=== PATIENT | male | born 2000 | race African-American/Black ===

== ENCOUNTER 2024-06-20 15:02 | Observation (INO) ==
--- NOTE | 2024-06-20 15:31 | Emergency Department Note ---
Impression & Plan Chest pain, Near syncope, Brugada syndrome ED Provider Note HISTORY OF PRESENT ILLNESS: Patient is a 23-year-old male presenting with chest pain and near syncope. Patient presents from [facility] with chest pain. He states he was seated in a chair when he developed chest pain and shortness of breath and got very sweaty and felt like he was going to pass out. He had an EKG performed at the nursing home that reportedly showed ST elevations and he was referred to the emergency department. Patient denies any history of cardiac pathology. He states that he keeps feeling like he is going to pass out in which his vision gets blurry and he feels lightheaded. He states that he feels like he was kicked in the chest. Locates the pain to the substernal chest with radiation to the left shoulder. He denies any recreational drug use. Denies any abdominal pain, nausea or vomiting. ROS: as above PHYSICAL EXAM: Constitutional: Patient appears in no acute distress. HENT: Head: Normocephalic and atraumatic. Eyes: EOMI, PERRL Mouth/Throat: Mucous membranes moist. Neck: Trachea midline. Neck supple. Cardiovascular: RRR, No murmurs, rubs or gallops. Intact distal pulses. Pulmonary/Chest: No respiratory distress. Breath sounds clear and equal bilaterally. No wheezes or rales. Abdominal: Abdomen soft, no tenderness, rebound or guarding. Musculoskeletal: No edema, tenderness or deformity noted. Skin: Warm and dry. No rash, erythema, pallor or cyanosis Psychiatric: Appropriate mood and affect for situation. Neurological: Alert and keenly responsive. CN II-XII grossly intact, moving all extremities equally and fully. MDM: - Vitals signs showed bradycardia - History obtained via patient. History as above. - Chronic conditions affecting care: None - Differential diagnoses include, but are not limited to: Acute coronary syndrome; pulmonary embolism; dissection; tension pneumothorax; esophageal rupture; pneumonia - Order placed for continuous cardiac monitoring. At this time, monitor showed rate of 57 bpm with normal sinus rhythm, per my interpretation. - External medical records reviewed. - EKG image interpreted by myself showed normal sinus rhythm. Rate bradycardic at 58 bpm. QT 412. Patient is noted to have Brugada syndrome. No previous EKG to compare to. - Laboratory workup interpreted by myself showed normal WBC; normal PT/INR; stable electrolytes; normal lipase; normal troponin - CXR image reviewed by myself was negative for pneumonia, per my interpretation. - UA negative for infection. UDS negative - Discussed case with EP manufacturing engineering technologist division order technician, Dr. Gupta, at 16:10. He recommended an echocardiogram and rhythm monitoring. Did discuss that the patient is having any symptoms of feeling like he is going to pass out but he is not having any ventricular fibrillation on telemetry. Echocardiogram was ordered, but Dr. Gupta states that this can get done tomorrow on his admission. - Discussion was had with lining caser about patient's case and need for admission - Hospitalist consulted for admission - [facility] ASSESSMENT AND PLAN: Diagnosis: chest pain; near syncope; Brugada syndrome Plan: admit Past Med/Surg History Problem List (Updated 06/20/24 @ 16:59 by Olga Lidia Cotton MD) Brugada syndrome (Acute) Near syncope (Acute) Chest pain (Acute) Social History Smoking Status: Current every day smoker Preferred Language: [place] Feels Safe at Home: Yes Allergies Allergies Allergy/AdvReac Type Severity Reaction Status Date / Time No Known Allergies Allergy Unverified 06/20/24 15:45 Home Meds Home Medications Medication Instructions Recorded Confirmed albuterol sulfate 90 mcg/actuation 2 puff inhalation QID PRN 06/20/24 06/20/24 aerosol inhaler Shortness Of Breath Or Wheezing Results & Data (ED) Vital Signs Vital Signs - 24 hr 06/20/24 15:16 06/20/24 15:30 06/20/24 15:33 Temperature 37 C Temperature Source Oral Pulse Rate 57 L 59 L Respiratory Rate 16 16 Respiratory Effort / Characteristics Non-Labored Spontaneous Respiratory Depth Normal Respiratory Pattern Regular Blood Pressure 130/80 122/69 Blood Pressure Mean 96 97 Pulse Oximetry 99 99 Oxygen Delivery Method Room Air Room Air Sepsis Recent Fever Within 48 Hours No Sepsis New/Unexplained Change in Mental Status N/A Sepsis Action Taken by Nursing No Action Required 06/20/24 15:45 06/20/24 15:46 06/20/24 16:11 Temperature Temperature Source Pulse Rate 59 L 61 Respiratory Rate 13 Respiratory Effort / Characteristics Respiratory Depth Respiratory Pattern Blood Pressure 134/88 Blood Pressure Mean 106 Pulse Oximetry 100 Oxygen Delivery Method Room Air Sepsis Recent Fever Within 48 Hours Sepsis New/Unexplained Change in Mental Status Sepsis Action Taken by Nursing 06/20/24 16:12 06/20/24 16:24 Temperature Temperature Source Pulse Rate 58 L 57 L Respiratory Rate 18 16 Respiratory Effort / Characteristics Respiratory Depth Respiratory Pattern Blood Pressure Blood Pressure Mean Pulse Oximetry 100 100 Oxygen Delivery Method Room Air Room Air Sepsis Recent Fever Within 48 Hours Sepsis New/Unexplained Change in Mental Status Sepsis Action Taken by Nursing Laboratory Data 06/20/24 15:20 06/20/24 15:20 Lab Results 06/20/24 06/20/24 Range/Units 15:20 16:12 WBC 7.07 (4.8-10.8) K/ul RBC 5.17 (4.70-6.10) M/uL Hgb 16.2 (14.0-18.0) g/dl Hct 45.5 (42.0-52.0) % MCV 88.0 (80.0-100.0) fL MCH 31.3 (25.0-34.0) pg MCHC 35.6 (32.0-36.0) g/dL RDW Std Deviation 40.5 (36.4-46.3) fL RDW Coeff of Anup 12.6 (11.5-14.5) % Plt Count 203 (130-400) K/uL MPV 9.6 (9.4-12.4) fL Immature Gran % (Auto) 0.1 % Neut % (Auto) 67.6 % Lymph % (Auto) 22.1 % [place] % (Auto) 8.9 % Eos % (Auto) 0.6 % Baso % (Auto) 0.7 % Neut # (Auto) 4.78 (1.40-6.50) K/uL Lymph # (Auto) 1.56 (1.20-3.40) K/uL [place] # (Auto) 0.63 H (0.11-0.59) K/uL Eos # (Auto) 0.04 (0.00-0.50) K/uL Baso # (Auto) 0.05 (0.00-0.20) K/uL Immature Gran # (Auto) 0.01 (0.01-0.20) K/uL PT 11.7 (9.0-12.0) Seconds INR 1.1 (0.9-1.1) Sodium 138 (136-145) mmol/L Potassium 4.2 (3.5-5.1) mmol/L Chloride 103 (98-107) mmol/L Carbon Dioxide 31 (21-32) mmol/L Anion Gap 4 (3-11) BUN 11 (6-23) mg/dl Creatinine 1.03 (0.6-1.4) mg/dl Est Cr Clr Drug Dosing 147.3 ml/min eGFR 103.38 BUN/Creatinine Ratio 10.7 (10-20) Glucose 83 (70-99(Fasting)) mg/dl Calcium 9.4 (8.6-10.3) mg/dl Magnesium 1.9 (1.7-2.4) mg/dl Total Bilirubin 0.7 (0.2-1.0) mg/dl AST 25 (13-39) U/L ALT 21 (7-52) U/L Alkaline Phosphatase 62 (34-104) U/L Troponin I High Sens < 2.3 (0-20) pg/ml Total Protein 7.9 (6.0-8.3) gm/dl Albumin 4.7 (3.4-5.0) gm/dl Globulin 3.2 (2.5-4.0) gm/dl Albumin/Globulin Ratio 1.5 (0.9-2) Lipase 22 (11-82) U/L Urine Color Yellow Urine Appearance Clear (Clear) Urine pH 7.0 (4.5-7.5) Ur Specific [place] 1.015 (1.000-1.030) Urine Protein Negative (Negative) Urine Glucose (UA) Negative (Negative) Urine Ketones Negative (Negative) Urine Blood Negative (Negative) Urine Nitrite Negative (Negative) Urine Bilirubin Negative (Negative) Urine Urobilinogen Negative (Negative) Ur Leukocyte Esterase Negative (Negative) Urine Opiates Screen Neg (Neg) Ur Methadone, Qual Neg (Neg) Urine Fentanyl Screen Neg (Neg) Urine Barbiturates Neg (Neg) Ur Phencyclidine (PCP) Neg (Neg) U Amphetamin/Meth Scrn Neg (Neg) MDMA (Ecstasy) Screen Neg (Neg) U Benzodiazepines Scrn Neg (Neg) Ur Cocaine Metabolite Neg (Neg) U Marijuana (THC) Screen Neg (Neg) Imaging Data Radiologist's Impression: Chest X-Ray 06/20/24 15:15 XR chest 1V portable CLINICAL HISTORY: Chest pain, nonspecific COMPARISON STUDY: None FINDINGS: Heart size and pulmonary vasculature are normal. No effusion, consolidation, or pneumothorax. IMPRESSION: No acute findings. ACT 112: Negative or not required by law. Electronically signed by: Jaime Perea M.D. 06/20/2024 3:55 PM Discharge Plan Visit Data Chief Complaint: Chest Pain ED Provider: Olga Lidia Cotton Discharge Problem: Chest pain, Near syncope, Brugada syndrome Forms Stand Alone Forms: [facility] [employer] Prescriptions Prescriptions: No Action albuterol sulfate 90 mcg/actuation Hfa Aerosol Inhaler 2 puff INHALATION QID PRN (Reason: Shortness Of Breath Or Wheezing) Referrals Referrals: Zeeshan DONOHUE [Primary Care Provider] -
[2024-06-20 15:33] LABS: Basophils # (auto) 0.05 K/uL (0.00-0.20); Basophils % (auto) 0.7 %; Eosinophils # (auto) 0.04 K/uL (0.00-0.50); Eosinophils % (auto) 0.6 %; Hematocrit (blood only) 45.5 % (42.0-52.0); Hemoglobin 16.2 g/dl (14.0-18.0); Immature Granulocytes # (auto) 0.01 K/uL (0.01-0.20); Immature Granulocytes % (auto) 0.1 %; Lymphocytes # (auto) 1.56 K/uL (1.20-3.40); Lymphocytes % (auto) 22.1 %; Mean Corpuscular Hemoglobin 31.3 pg (25.0-34.0); Mean Corpuscular Hgb Conc 35.6 g/dL (32.0-36.0); Mean Platelet Volume 9.6 fL (9.4-12.4); Monocytes # (auto) 0.63 K/uL (0.11-0.59); Monocytes % (auto) 8.9 %; Neutrophils # (auto) 4.78 K/uL (1.40-6.50); Neutrophils % (auto) 67.6 %; Platelet Count 203 K/uL (130-400); RDW Coefficient of Variation 12.6 % (11.5-14.5); RDW Standard Deviation 40.5 fL (36.4-46.3); Red Blood Count 5.17 M/uL (4.70-6.10); White Blood Count 7.07 K/ul (4.8-10.8)
[2024-06-20 15:48] LABS: Alanine Aminotransferase 21 U/L (7-52); Albumin Globulin Ratio 1.5 (0.9-2); Albumin Level 4.7 gm/dl (3.4-5.0); Alkaline Phosphatase 62 U/L (34-104); Anion Gap 4 (3-11); Aspartate Aminotransferase 25 U/L (13-39); BUN Creatinine Ratio 10.7 (10-20); Bilirubin,Total 0.7 mg/dl (0.2-1.0); Blood Urea Nitrogen 11 mg/dl (6-23); Calcium 9.4 mg/dl (8.6-10.3); Carbon Dioxide 31 mmol/L (21-32); Chloride 103 mmol/L (98-107); Creatinine Clr Calc Pharmacy 147.3 ml/min; Globulin 3.2 gm/dl (2.5-4.0); Glucose 83 mg/dl (70-99(Fasting)); Lipase 22 U/L (11-82); Potassium 4.2 mmol/L (3.5-5.1); Sodium 138 mmol/L (136-145); Total Protein 7.9 gm/dl (6.0-8.3)
[2024-06-20 15:55] LABS: Troponin I High Sensitivity < 2.3 pg/ml (0-20)
--- NOTE | 2024-06-20 15:56 | XRay Report ---
XR chest 1V portable CLINICAL HISTORY: Chest pain, nonspecific COMPARISON STUDY: None FINDINGS: Heart size and pulmonary vasculature are normal. No effusion, consolidation, or pneumothora x. IMPRESSION: No acute findings. ACT 112: Negative or not required by law. Electronically signed by: Jaime Perea M.D. 06/20/2024 3:55 PM
[2024-06-20 15:58] LABS: INR 1.1 (0.9-1.1); Prothrombin Time 11.7 Seconds (9.0-12.0)
--- NOTE | 2024-06-20 16:34 | Electrocardiogram Report ---
Test Reason : Blood Pressure : */* mmHG Vent. Rate : 58 BPM Atrial Rate : 58 BPM P-R Int : 202 ms QRS Dur : 118 ms QT Int : 412 ms P-R-T Axes : 22 65 61 degrees QTcB Int : 404 ms Sinus bradycardia with sinus arrhythmia Brugada pattern, type 1 Non-specific intra-ventricular conduction delay Abnormal ECG No previous ECGs available Confirmed by Wili Gupta ([id number]) on 06/20/2024 4:33:39 PM Referred By: Confirmed By: Wili Gupta
[2024-06-20 16:56] LABS: Appearance Urine Clear (Clear); Bilirubin Urine Negative (Negative); Blood Urine Negative (Negative); Color Urine Yellow; Glucose Urine UA Negative (Negative); Ketones Urine Negative (Negative); Leukocyte Esterase Urine Negative (Negative); Nitrite Urine Negative (Negative); Protein Urine Negative (Negative); Specific Gravity Urine 1.015 (1.000-1.030); Urobilinogen Urine Negative (Negative)
[2024-06-20 16:59] LABS: Magnesium 1.9 mg/dl (1.7-2.4)
[2024-06-20 17:22] LABS: Amphetamines+Metham, Urine Neg (Neg); Barbiturates, Urine Neg (Neg); Benzodiazepine, Urine Neg (Neg); Cocaine, Urine Neg (Neg); Fentanyl, Urine Neg (Neg); MDMA (Ecstacy), Urine Neg (Neg); Marijuana, Urine Neg (Neg); Methadone, Urine Neg (Neg); Opiate, Urine Neg (Neg); Phencyclidine, Urine Neg (Neg)
--- NOTE | 2024-06-20 17:59 | History & Physical Report ---
Date of Service June 20, 2024 Assessment & Plan (1) Brugada syndrome: Plan: Presented with chest pain with typical radiation for angina, presyncope and palpitations Noted to have sinus bradycardia with a rate of [address] elevation in V1-V3 with Brugada syndrome He is free from any pain and cardiac markers are negative for any ACS The ER physician did discuss with the EP business librarian and was advised to admit the patient get an echocardiogram He will be further evaluated by the business librarian in the morning He will be admitted to telemetry unit for continued Care (2) Near syncope: Plan: Likely secondary to significant tachycardia may be due to ventricular arrhythmias Condition resolved and the patient will be observed (3) Chest pain: Plan: No more chest pain (4) Asthma: Plan: Well-controlled with occasional use of inhaler Also has history of anxiety Takes Remeron as needed but not on the list DVT prophylaxis Subcu heparin CODE STATUS Full History of Present Illness Chief Complaint: Chest pain with near syncope at around 1 PM Primary Care Provider: [facility] Byers Is a 23-year-old male with significant past medical history of controlled asthma apparently was brought in from [facility] with chest pain and near syncope that happened to be around 1 PM .he was sitting down and suddenly felt some palpitation associated with chest pain that radiated to the left upper extremity and also to the neck, he felt sweaty and also visual floaters and almost about to pass out. He did not have this symptoms anytime before and he does not have any cardiac conditions. He denies any nausea or vomiting associated with it and does not have any numbness or tingling involving any of the extremities. His asthma seems to be well-controlled. He has been feeling fine since admission and the EKG showed typical Brugada syndrome and the case was discussed with Dr. Gupta by the emergency medicine doctor and was advised to admit the patient and get an echocardiogram. He will be seen by the business librarian in the morning for further evaluation and investigation. Allergies Allergy/AdvReac Type Severity Reaction Status Date / Time No Known Allergies Allergy Unverified 06/20/24 15:45 Home Medications Medication Instructions Recorded Confirmed Type albuterol sulfate 90 mcg/actuation 2 puff inhalation QID PRN 06/20/24 06/20/24 History aerosol inhaler Shortness Of Breath Or Wheezing Past Med/Surg History Problem List (Updated 06/20/24 @ 17:56 by Radha Snow MD) Asthma Brugada syndrome (Acute) Near syncope (Acute) Chest pain (Acute) Social History Smoking Status: Current every day smoker Preferred Language: [place] Feels Safe at Home: Yes Review of Systems Review of Systems: All systems reviewed and unremarkable except as noted below Physical Exam Physical Exam: Lying in bed without any acute distress Constitutional: well developed and well nourished; not ill appearing Eyes: PERRL, conjunctivae normal, anicteric sclerae ENMT: external ear and nose normal, oropharynx normal Neck: trachea midline, no thyromegaly Respiratory: no respiratory distress Auscultation: + crackles; + lungs not clear to auscultation Cardiovascular: Rate/Rhythm: regular rate, regular rhythm and + bradycardic Heart Sounds: normal S1, normal S2 and + murmur Extremities: no edema Gastrointestinal (Abdomen): Inspection/Auscultation: normal bowel sounds; abdomen not distended Percussion/Palpation: abdomen soft; abdomen nontender Musculoskeletal: No acute arthritis involving any of the joint Neurologic: normal touch/pain/proprioception and moves all extremities; no focal motor deficits Psychiatric: A+Ox3, euthymic affect Lymphatic: no cervical or axillary lymphadenopathy Results & Data Results & Data Vital Signs (Past 12 Hours) Vital Signs Temp Pulse Resp BP Pulse Ox O2 Del Method 06/20/24 16:24 57 L 16 100 Room Air 06/20/24 16:12 58 L 18 100 Room Air 06/20/24 16:11 134/88 06/20/24 15:46 61 06/20/24 15:45 59 L 13 100 Room Air 06/20/24 15:33 59 L 16 99 Room Air 06/20/24 15:30 122/69 06/20/24 15:16 37 C 57 L 16 130/80 99 Room Air Laboratory Results Short CBC 06/20/24 Range/Units 15:20 WBC 7.07 (4.8-10.8) K/ul Hgb 16.2 (14.0-18.0) g/dl Hct 45.5 (42.0-52.0) % Plt Count 203 (130-400) K/uL BMP 06/20/24 15:20 Sodium 138 Potassium 4.2 Chloride 103 Carbon Dioxide 31 BUN 11 Creatinine 1.03 Glucose 83 Calcium 9.4 Liver Function 06/20/24 Range/Units 15:20 Total Bilirubin 0.7 (0.2-1.0) mg/dl AST 25 (13-39) U/L ALT 21 (7-52) U/L Alkaline Phosphatase 62 (34-104) U/L Albumin 4.7 (3.4-5.0) gm/dl Urine 06/20/24 Range/Units 16:12 Urine Color Yellow Urine Appearance Clear (Clear) Urine pH 7.0 (4.5-7.5) Ur Specific [place] 1.015 (1.000-1.030) Urine Protein Negative (Negative) Urine Glucose (UA) Negative (Negative) Medications Administered Current Inpatient Medications Heparin Sodium (Porcine) (Heparin Sod 5,000 Unit/0.5 Ml Vial) 5,000 units SQ Q12 LETY Stop: 07/20/24 20:59 Code Status & VTE Plan VTE Prophylaxis Plan VTE Prophylaxis will be ordered: Yes
[2024-06-20] MEDS: ACETAMINOPHEN 500 MG TAB PO PRN (21:14)
[2024-06-20] MEDS: HEPARIN SOD 5,000 UNIT/0.5 ML VIAL SQ SCH (21:14)
[2024-06-21 08:25] LABS: Basophils # (auto) 0.04 K/uL (0.00-0.20); Basophils % (auto) 0.7 %; Eosinophils # (auto) 0.13 K/uL (0.00-0.50); Eosinophils % (auto) 2.3 %; Hematocrit (blood only) 45.5 % (42.0-52.0); Hemoglobin 15.8 g/dl (14.0-18.0); Immature Granulocytes # (auto) 0.01 K/uL (0.01-0.20); Immature Granulocytes % (auto) 0.2 %; Lymphocytes # (auto) 2.24 K/uL (1.20-3.40); Lymphocytes % (auto) 40.4 %; Mean Corpuscular Hemoglobin 30.7 pg (25.0-34.0); Mean Corpuscular Hgb Conc 34.7 g/dL (32.0-36.0); Mean Corpuscular Volume 88.5 fL (80.0-100.0); Mean Platelet Volume 9.5 fL (9.4-12.4); Monocytes # (auto) 0.59 K/uL (0.11-0.59); Monocytes % (auto) 10.6 %; Neutrophils # (auto) 2.53 K/uL (1.40-6.50); Neutrophils % (auto) 45.8 %; Platelet Count 182 K/uL (130-400); RDW Coefficient of Variation 12.7 % (11.5-14.5); RDW Standard Deviation 41.5 fL (36.4-46.3); Red Blood Count 5.14 M/uL (4.70-6.10); White Blood Count 5.54 K/ul (4.8-10.8)
[2024-06-21] MEDS: MoRPHine SULFATE 2 MG/ML CARP IV STA (08:47)
[2024-06-21 09:06] LABS: BUN Creatinine Ratio 10.7 (10-20); Calcium 9.3 mg/dl (8.6-10.3); Phosphorus 3.8 mg/dl (2.5-4.9); Potassium 3.5 mmol/L (3.5-5.1)
--- NOTE | 2024-06-21 09:29 | XCELERA ---
[id number]
--- NOTE | 2024-06-21 11:46 | Electrocardiogram Report ---
Test Reason : Blood Pressure : */* mmHG Vent. Rate : 55 BPM Atrial Rate : 55 BPM P-R Int : 200 ms QRS Dur : 110 ms QT Int : 436 ms P-R-T Axes : 37 64 74 degrees QTcB Int : 417 ms Sinus bradycardia Otherwise normal ECG When compared with ECG of 20-Jun-2024 19:39, (unconfirmed) FL interval has decreased right precordial ST elevation has improved Confirmed by Wili Gupta ([id number]) on 06/21/2024 11:46:26 AM Referred By: Zeeshan SCI Confirmed By: Wili Gupta
--- NOTE | 2024-06-21 13:30 | Cardiology Consultation ---
Date of Consultation June 21, 2024 Assessment & Plan (1) Chest pain: (2) Dizziness: (3) Brugada pattern on electrocardiogram: (4) Cardiomyopathy: Plan 1. Chest pain: His description of the chest pain is not suggestive of an acute coronary syndrome or coronary disease. Symptoms were of unclear duration but has not been no elevation in his biomarkers. EKG not consistent with any acute coronary syndrome. There is a pleuritic and positional component to his symptoms. Based on a history of breathing trouble and the nature of his symptoms I think a cardiac CTA would be reasonable. In the absence of an abnormality this can be treated conservatively with analgesics. 2. Dizziness: Dizziness is a concerning symptom in a patient with a Brugada pattern. However, it seems his symptoms were fairly prolonged in nature. He did not have actual syncope and no arrhythmia was documented either at the medical department or at our facility while on telemetry and experiencing dizziness. As a result, I think it is unlikely that his symptoms of dizziness are related to an arrhythmia or Brugada syndrome. 3. Brugada pattern: He does appear to have atypical type I Brugada pattern on initial EKG. This changed to a type II pattern on his most recent EKG. He does have a family history of heart disease, but he is unclear on the details. His mother had a "pacemaker". He was confident this was not a defibrillator. His brother appears to have had some element of congenital heart disease and perhaps passes out on occasion. He has several other siblings whose medical history is not familiar to him. Remote history of possible syncope while on the beach. I do not think there is enough evidence at this time to say he has Brugada syndrome. I think would be reasonable to consider more prolonged monitoring. An implantable monitor may be of value. 4. Cardiomyopathy: His echocardiogram was not entirely normal. I am not sure this plays any role in his recent symptoms. Perhaps the abnormalities are simply related to resting bradycardia. They will be reasonable to perform some exercise testing and reevaluation of the ventricle under exertion. We did discuss the option for coronary angiography given the regional wall motion abnormalities. However, he has few symptoms of ischemic heart disease, he is not in a demographic where this is common and seem to have some aversion to invasive procedures. I think this can be safely deferred at this time. History of Present Illness Reason for Consultation: Abnormal EKG, chest pain, dizziness Requesting Physician: Yury Attending Physician: Radha Snow MD History of Present Illness The patient is a 23-year-old gentleman currently incarcerated who presented to the medical department at his facility with symptoms of chest pain and dizziness. The patient states that he was simply sitting and relaxing when he noticed the onset of diaphoresis. This was followed quickly by a sense of dizziness and chest pain. The chest pain involve the left axillary area and back. Eventually it involve the precordium as well. He describes it as severe and "sharp" and "stabbing". He was significantly dizzy and had to rest on the floor at that time. He did not lose consciousness. He was taken to medical and an EKG was performed. He was found to have ST segment elevations and in the setting of chest pain transported to our facility for evaluation. The chest pain seem to resolve before arrival but the patient states he was still dizzy at the time of evaluation at our facility. He was noted to have an abnormal EKG but not consistent with an acute coronary syndrome. He was admitted to the hospital for observation. The patient did report 1 episode of syncope which occurred several years ago. He recalls this being on the beach on a hot day. He noted some palpitations and was felt to be dehydrated by his mother. They cooled him down and he apparently felt better. Unclear if he actually lost consciousness. He generally does not have symptoms of dizziness or lightheadedness. He is an active individual who is able to exercise vigorously without symptoms. Earlier this morning the patient had another episode of chest discomfort and dizziness. He states this was similar to the one he experienced the day prior. He was given some analgesics and his chest pain appeared to resolved. Not currently dizzy. He still has some chest discomfort especially if he lies down flat. He has some difficulty taking deep breath due to splinting and asthma. Allergies Allergy/AdvReac Type Severity Reaction Status Date / Time No Known Allergies Allergy Unverified 06/20/24 15:45 Home Medications Medication Instructions Recorded Confirmed Type albuterol sulfate 90 mcg/actuation 2 puff inhalation QID PRN 06/20/24 06/20/24 History aerosol inhaler Shortness Of Breath Or Wheezing Patient History Social History Smoking Status: Current every day smoker Tobacco Type: Cigarettes Cigarettes Per Day: 40 or 2ppd; Second Hand Exposure: Yes; Do You Dip or Chew Tobacco: No; Tobacco Cessation Education Requested by Patient: No Hx Alcohol Use: No Preferred Language: Salvadorean Communication Ability: Effective Cancer Program Consultant Required: No Beliefs That Will Affect Care: None Current Living Situation: Other Current Living Situation Comment: Penitentiary Other Information That Helps Us Care for You: No Feels Safe at Home: Yes Safety Concerns: Feels Safe At This Time Assistive Devices: None Review of Systems Review of Systems: Per HPI. Occasional asthma. Uses inhaler twice daily. Physical Exam Physical Exam: The patient is alert and oriented. Mood and affect appeared normal. He answered all questions appropriately. HEENT: Pupils are equal and reactive to light and accommodation. Extraocular movements are intact. The sclerae are anicteric. Neuro: Cranial nerves intact Lungs: Clear to auscultation bilaterally. He has good air movement without use of accessory muscles. No rales wheezes or rhonchi. Cardiac: Heart demonstrates a regular rate and rhythm. Normal S1 and S2. No murmurs on examination. Pulses: The patient has palpable radial pulses bilaterally that are equal in intensity Extremities: There was no evidence of hypoperfusion. There is no cyanosis or clubbing. There is no edema. Skin: I did not appreciate any rashes on examination today. Results & Data Vital Signs (Past 12 Hours) Vital Signs Temp Pulse Resp BP Pulse Ox O2 Del Method 06/21/24 11:23 36.7 C 56 L 20 106/68 99 Room Air 06/21/24 07:38 36.6 C 73 18 110/71 91 Room Air 06/21/24 02:37 36.4 C L 67 19 110/64 96 Room Air Laboratory Results Abnormal Lab Results 06/20/24 06/20/24 06/20/24 15:20 16:12 21:35 WBC 7.07 RBC 5.17 Hgb 16.2 Hct 45.5 MCV 88.0 MCH 31.3 MCHC 35.6 RDW Std Deviation 40.5 RDW Coeff of Anup 12.6 Plt Count 203 MPV 9.6 Immature Gran % (Auto) 0.1 Neut % (Auto) 67.6 Lymph % (Auto) 22.1 [place] % (Auto) 8.9 Eos % (Auto) 0.6 Baso % (Auto) 0.7 Neut # (Auto) 4.78 Lymph # (Auto) 1.56 [place] # (Auto) 0.63 H Eos # (Auto) 0.04 Baso # (Auto) 0.05 Immature Gran # (Auto) 0.01 PT 11.7 INR 1.1 Sodium 138 Potassium 4.2 Chloride 103 Carbon Dioxide 31 Anion Gap 4 BUN 11 Creatinine 1.03 Est Cr Clr Drug Dosing 147.3 eGFR 103.38 BUN/Creatinine Ratio 10.7 Glucose 83 Calcium 9.4 Phosphorus Magnesium 1.9 Total Bilirubin 0.7 AST 25 ALT 21 Alkaline Phosphatase 62 Troponin I High Sens < 2.3 < 2.3 Total Protein 7.9 Albumin 4.7 Globulin 3.2 Albumin/Globulin Ratio 1.5 Lipase 22 Urine Color Yellow Urine Appearance Clear Urine pH 7.0 Ur Specific [place] 1.015 Urine Protein Negative Urine Glucose (UA) Negative Urine Ketones Negative Urine Blood Negative Urine Nitrite Negative Urine Bilirubin Negative Urine Urobilinogen Negative Ur Leukocyte Esterase Negative Nasal Screen MRSA (PCR) Urine Opiates Screen Neg Ur Methadone, Qual Neg Urine Fentanyl Screen Neg Urine Barbiturates Neg Ur Phencyclidine (PCP) Neg U Amphetamin/Meth Scrn Neg MDMA (Ecstasy) Screen Neg U Benzodiazepines Scrn Neg Ur Cocaine Metabolite Neg U Marijuana (THC) Screen Neg 06/21/24 06/21/24 08:02 Unknown WBC 5.54 RBC 5.14 Hgb 15.8 Hct 45.5 MCV 88.5 MCH 30.7 MCHC 34.7 RDW Std Deviation 41.5 RDW Coeff of Anup 12.7 Plt Count 182 MPV 9.5 Immature Gran % (Auto) 0.2 Neut % (Auto) 45.8 Lymph % (Auto) 40.4 [place] % (Auto) 10.6 Eos % (Auto) 2.3 Baso % (Auto) 0.7 Neut # (Auto) 2.53 Lymph # (Auto) 2.24 [place] # (Auto) 0.59 Eos # (Auto) 0.13 Baso # (Auto) 0.04 Immature Gran # (Auto) 0.01 PT INR Sodium 138 Potassium 3.5 Chloride 101 Carbon Dioxide 34 H Anion Gap 3 BUN 11 Creatinine 1.03 Est Cr Clr Drug Dosing 146.0 eGFR 103.38 BUN/Creatinine Ratio 10.7 Glucose 88 Calcium 9.3 Phosphorus 3.8 Magnesium 2.0 Total Bilirubin AST ALT Alkaline Phosphatase Troponin I High Sens < 2.3 Total Protein Albumin Globulin Albumin/Globulin Ratio Lipase Urine Color Urine Appearance Urine pH Ur Specific [place] Urine Protein Urine Glucose (UA) Urine Ketones Urine Blood Urine Nitrite Urine Bilirubin Urine Urobilinogen Ur Leukocyte Esterase Nasal Screen MRSA (PCR) Negative Urine Opiates Screen Ur Methadone, Qual Urine Fentanyl Screen Urine Barbiturates Ur Phencyclidine (PCP) U Amphetamin/Meth Scrn MDMA (Ecstasy) Screen U Benzodiazepines Scrn Ur Cocaine Metabolite U Marijuana (THC) Screen Diagnostic Findings Echocardiogram 06/21/2024: Mildly reduced LV systolic function with regional wall motion abnormality involving the apical lateral and anterior shen. PG Care Time/CCT Total # of Minutes Spent Total Time Spent with Patient: Total time spent is greater than 50% in coordination of care (as documented) at patient's floor/unit and/or counseling patient: Coding Level of Care Code 88577 INT INP/OBS CARE MIN Diagnoses Chest pain R07.9 Dizziness R42 Brugada pattern on electrocardiogram I49.8 Cardiomyopathy I42.9
[2024-06-21] MEDS: OPTIRAY 320 125ml IV ONE (14:12)
--- NOTE | 2024-06-21 14:17 | Hospitalist Progress Note ---
Date of Service June 21, 2024 Assessment & Plan (1) Brugada syndrome: Plan: Presented with chest pain with typical radiation for angina, presyncope and palpitations Noted to have sinus bradycardia with a rate of [address] elevation in V1-V3 with Brugada syndrome He is free from any pain and cardiac markers are negative for any ACS The ER physician did discuss with the EP newswriter and was advised to admit the patient get an echocardiogram Monitor did not show any arrhythmias and he did not have any symptoms except minimal chest pain this morning Appreciate cardiology input and recommendation- will likely need further observation and testing before diagnosis of Brugada syndrome Cardiomyopathy Echo of the heart showed- cardiomyopathy with EF of 45 to 50% with apparent mild hypokinesis of the mid to distal portion of the anterior lateral shen. No diastolic dysfunction He has strong family history of heart disease but does not have anyone with ICD placement Cardiology suggested CTA to rule out pulmonary embolism and possible stress test tomorrow (2) Near syncope: Plan: Likely secondary to significant tachycardia may be due to ventricular arrhythmias Condition resolved and the patient will be observed His symptoms of dizziness was prolonged as per the newswriter to suggest Brugada syndrome but has not been ruled out completely He will have CTA to rule out pulmonary embolism (3) Chest pain: Plan: No more chest pain No ACS (4) Asthma: Plan: Well-controlled with occasional use of inhaler Also has history of anxiety Takes Remeron as needed but not on the list DVT prophylaxis Subcu heparin CODE STATUS Full Admission and Anticipated Discharge Date Admission Date: June 20, 2024 Subjective 06/21/2024 The patient was seen and examined in telemetry unit She has had some chest pain earlier this morning and received 2 mg of morphine Has been feeling good otherwise No arrhythmias and monitor Review of Systems Review of Systems: All systems reviewed and unremarkable except as noted below Physical Exam Physical Exam: Lying in bed without any acute distress Constitutional: well developed and well nourished; not ill appearing Eyes: PERRL, conjunctivae normal, anicteric sclerae ENMT: external ear and nose normal, oropharynx normal Neck: trachea midline, no thyromegaly Respiratory: no respiratory distress Auscultation: + crackles; + lungs not clear to auscultation Cardiovascular: Rate/Rhythm: regular rate, regular rhythm and + bradycardic Heart Sounds: normal S1, normal S2 and + murmur Extremities: no edema Gastrointestinal (Abdomen): Inspection/Auscultation: normal bowel sounds; abdomen not distended Percussion/Palpation: abdomen soft; abdomen nontender Neurologic: normal touch/pain/proprioception and moves all extremities; no focal motor deficits Psychiatric: A+Ox3, euthymic affect Lymphatic: no cervical or axillary lymphadenopathy Results & Data Results & Data Vital Signs (Past 12 Hours) Vital Signs Temp Pulse Resp BP Pulse Ox O2 Del Method 06/21/24 11:23 36.7 C 56 L 20 106/68 99 Room Air 06/21/24 07:38 36.6 C 73 18 110/71 91 Room Air 06/21/24 02:37 36.4 C L 67 19 110/64 96 Room Air Laboratory Results Short CBC 06/20/24 06/21/24 Range/Units 15:20 08:02 WBC 7.07 5.54 (4.8-10.8) K/ul Hgb 16.2 15.8 (14.0-18.0) g/dl Hct 45.5 45.5 (42.0-52.0) % Plt Count 203 182 (130-400) K/uL BMP 06/20/24 06/21/24 15:20 08:02 Sodium 138 138 Potassium 4.2 3.5 Chloride 103 101 Carbon Dioxide 31 34 H BUN 11 11 Creatinine 1.03 1.03 Glucose 83 88 Calcium 9.4 9.3 Liver Function 06/20/24 Range/Units 15:20 Total Bilirubin 0.7 (0.2-1.0) mg/dl AST 25 (13-39) U/L ALT 21 (7-52) U/L Alkaline Phosphatase 62 (34-104) U/L Albumin 4.7 (3.4-5.0) gm/dl Urine 06/20/24 Range/Units 16:12 Urine Color Yellow Urine Appearance Clear (Clear) Urine pH 7.0 (4.5-7.5) Ur Specific [place] 1.015 (1.000-1.030) Urine Protein Negative (Negative) Urine Glucose (UA) Negative (Negative) Medications Administered Current Inpatient Medications Acetaminophen (Acetaminophen 500 Mg Tab) 1,000 mg PO Q8H PRN PRN Reason: Pain or Fever Stop: 07/20/24 17:59 Last Admin: 06/21/24 05:25 Dose: 1,000 mg Albuterol (Albuterol Hfa 8 Gm Inhaler) 2 puffs INH QID PRN PRN Reason: Shortness Of Breath Or Wheezing Stop: 07/20/24 21:05 Heparin Sodium (Porcine) (Heparin Sod 5,000 Unit/0.5 Ml Vial) 5,000 units SQ Q12 COUNTS INCLUDE 234 BEDS AT THE [facility] Stop: 07/20/24 20:59 Last Admin: 06/21/24 08:52 Dose: 5,000 units
--- NOTE | 2024-06-21 14:36 | CT Scan Report ---
CT angio chest PE protocol CT DOSE: 797.56 mGy.cm HISTORY: PE. TECHNIQUE: Multiple CTA images of the chest were obtained after the intravenous administration of 120 ml Optiray. Coronal and sagittal MIPS were obtained from the axial data set and were submitted for review. All measurements were obtained according to NASCET criteria. A dose lowering technique was u tilized adhering to the principles of ALARA. COMPARISON STUDY: None FINDINGS: There is no pulmonary consolidation or pleural effusion. No pneumothorax. There is a partia lly visualized right thyroid lobe nodule. No enlarged adenopathy. No pericardial effusion. No thoraci c aortic dissection or aneurysm. No pulmonary embolism. No acute osseous findings. IMPRESSION: No pulmonary embolism or pneumonia seen. ACT 112: Negative or not required by law. The above report was generated using voice recognition software. It may contain grammatical, syntax o r spelling errors. Electronically signed by: Jaime Perea M.D. 06/21/2024 2:33 PM
--- NOTE | 2024-06-21 15:50 | Electrocardiogram Report ---
Test Reason : Blood Pressure : */* mmHG Vent. Rate : 61 BPM Atrial Rate : 61 BPM P-R Int : 240 ms QRS Dur : 112 ms QT Int : 416 ms P-R-T Axes : 33 59 52 degrees QTcB Int : 418 ms Sinus rhythm with 1st degree A-V block Brugada pattern, type 1 Abnormal ECG When compared with ECG of 20-Jun-2024 15:11, MI interval has increased Confirmed by Wili Gupta ([id number]) on 06/21/2024 3:49:42 PM Referred By: Zeeshan SCI Confirmed By: Wili Gupta
[2024-06-21] MEDS: ALBUTEROL HFA 8 GM INHALER INH PRN (20:02)
[2024-06-22] MEDS: predniSONE 20 MG TAB PO SCH (15:40)
[2024-06-22] MEDS: FAMOTIDINE 10 MG TABLET PO SCH (15:40)
--- NOTE | 2024-06-22 15:47 | Hospitalist Progress Note ---
Date of Service June 22, 2024 Assessment & Plan (1) Brugada syndrome: Plan: Presented with chest pain with typical radiation for angina, presyncope and palpitations Chest Pain: DD: Less likely ACS. DD: Pleuritic, costochondritis --EKG suggestive of Brugada pattern --Troponin negative --ECHO: Left ventricular systolic function is mildly reduced. Appears to be mild hypokinesis of the mid to distal portions of the anterior lateral shen. Right ventricle is mildly dilated. Right atrium is mildly dilated. Inferior vena cava is mildly dilated. EF 45 to 50%. --Stress test today--normal per cardiology --Appreciate cardiology input --Trial of prednisone -- Cardiology suggested implantable loop recorder to rule out arrhythmias but patient refused per cardiology --Will recommend to obtain cardiac CTA as outpatient Needs follow-up with cardiology on discharge (2) Near syncope: Plan: Likely secondary to significant tachycardia may be due to ventricular arrhythmias Dizziness resolved Monitor for any arrhythmias Patient refused implantable loop recorder per Cards (3) Chest pain: Plan: Management as above (4) Asthma: Plan: Well-controlled with occasional use of inhaler H/O Anxiety Takes Remeron as needed but not on the list DVT Px: SQ Heparin CODE STATUS Full Code Admission and Anticipated Discharge Date Admission Date: June 20, 2024 Subjective Patient is seen and examined at bedside States having dyspnea on exertion overnight Denies any chest pain, dyspnea this morning Discussed with cardiology today Had stress test earlier today Review of Systems Review of Systems: All systems reviewed & are unremarkable except as noted in Subjective Physical Exam Physical Exam: Physical Exam: Vitals signs as noted above General Appearance:Moderately built and nourished, no apparent distress Head: normocephalic, Atraumatic Eyes: normal inspection, EOMI Neck: supple, Trachea midline Respiratory/Chest: Normal breath sounds, CTA, No accessory muscle use Cardiovascular: S1, S2, No murmur Abdomen/GI:Soft, Non tender, Bowel sounds present Extremities/Musculoskeletal:normal inspection, no edema Neurologic/Psych:AAOX3, grossly no focal neurological deficits Skin: normal color, warm Results & Data Results & Data Vital Signs (Past 12 Hours) Vital Signs Temp Pulse Pulse Resp BP Pulse Ox O2 Del Method 06/22/24 13:09 70 06/22/24 10:48 36.5 C 57 L 18 111/85 99 Room Air 06/22/24 08:00 36.7 C 60 20 110/82 99 Room Air 06/22/24 05:42 59 L
--- NOTE | 2024-06-22 19:45 | Cardiology Progress Note ---
Date of Service June 22, 2024 Assessment & Plan (1) Chest pain: (2) Dizziness: (3) Brugada pattern on electrocardiogram: (4) Cardiomyopathy: Plan 1. Chest pain: Noncardiac. Possibly musculoskeletal. Trial of analgesics, anti-inflammatories or steroids may be worthwhile. 2. Dizziness: Despite continued dizziness, no arrhythmias identified during his hospitalization. 3. Brugada pattern: No associated arrhythmias. At this point I would classify him as someone who has the Brugada pattern but not syndrome. I did discuss with the patient the option for additional monitoring in the form of an implantable loop recorder. However, he was not interested in the procedure. There are no exercise restrictions, but prompt treatment of any febrile illness with antipyretics is recommended. He should avoid any medicines that prolong sodium channel conduction (primarily class I antiarrhythmics) 4. Cardiomyopathy: He does seem to have some regional wall motion normalities on his baseline echocardiogram. However, with exercise he had good augmentation of all segments with normal function. No ischemic changes. Given his baseline EKG abnormalities and wall motion abnormalities cardiac MRI can be considered on an outpatient basis. Admission and Anticipated Discharge Date Admission Date: June 20, 2024 Subjective This afternoon the patient continues to complain of chest discomfort. It seems to wax and wane in severity. No obvious cause. No episodes of dizziness or lightheadedness. Review of Systems Review of Systems: Per HPI Physical Exam Physical Exam: The patient is alert and oriented. Mood and affect appeared normal. He answered all questions appropriately. HEENT: Pupils are equal and reactive to light and accommodation. Extraocular movements are intact. The sclerae are anicteric. Neuro: Cranial nerves intact Lungs: Clear to auscultation bilaterally. He has good air movement without use of accessory muscles. No rales wheezes or rhonchi. Cardiac: Heart demonstrates a regular rate and rhythm. Normal S1 and S2. No murmurs on examination. Pulses: The patient has palpable radial pulses bilaterally that are equal in intensity Extremities: There was no evidence of hypoperfusion. There is no cyanosis or clubbing. There is no edema. Skin: I did not appreciate any rashes on examination today. Results & Data Vital Signs (Past 12 Hours) Vital Signs Temp Pulse Pulse Resp BP Pulse Ox O2 Del Method 06/22/24 13:09 70 06/22/24 10:48 36.5 C 57 L 18 111/85 99 Room Air 06/22/24 08:00 36.7 C 60 20 110/82 99 Room Air Diagnostic Findings He underwent exercise echocardiography today which demonstrated good exercise tolerance, no ischemic EKG or echo findings and good augmentation of the left ventricle with exercise. PG Care Time/CCT Total # of Minutes Spent Total Time Spent with Patient: Total time spent is greater than 50% in coordination of care (as documented) at patient's floor/unit and/or counseling patient: Coding Level of Care Code 69130 SUB INP/OBS CARE 2/35MIN Diagnoses Chest pain R07.9 Dizziness R42 Brugada pattern on electrocardiogram I49.8 Cardiomyopathy I42.9
--- NOTE | 2024-06-22 20:49 | XCELERA ---
[id number]
[2024-06-23 08:08] LABS: Calcium 9.1 mg/dl (8.6-10.3); Potassium 3.9 mmol/L (3.5-5.1)
[2024-06-23 08:14] LABS: BUN Creatinine Ratio 9.4 (10-20); Creatinine Clr Calc Pharmacy 140.5 ml/min
[2024-06-23] MEDS: NITROGLYCERIN SL 0.4 MG/TAB TAB SL PRN (09:21)
[2024-06-23] MEDS: PANTOprazole 40 MG TAB PO SCH ×2 (12:25→20:19)
--- NOTE | 2024-06-23 13:58 | Fluoroscopy Report ---
FL barium swallow CLINICAL HISTORY: Rule out Esophageal Spasm. TECHNIQUE: Barium contrast and effervescent crystals were administered to the patient under fluorosco pic examination. Multiple images were obtained and submitted for review. FLUOROSCOPY TIME: 0.6 minutes FLUOROSCOPY IMAGES: 24 Ka,r: 27.3 mGy COMPARISON: None FINDINGS: There is no esophageal stricture or significant hiatal hernia. No significant esophageal sp asm seen. There is gastroesophageal reflux. Barium tablet passes through the esophagus and into the s tomach without delay. IMPRESSION: Gastroesophageal reflux. Otherwise unremarkable. ACT 112: Negative or not required by law. The above report was generated using voice recognition software. It may contain grammatical, syntax o r spelling errors. Electronically signed by: Jaime Perea M.D. 06/23/2024 1:57 PM
--- NOTE | 2024-06-23 15:37 | Hospitalist Progress Note ---
Date of Service June 23, 2024 Assessment & Plan (1) Brugada syndrome: Plan: Presented with chest pain with typical radiation for angina, presyncope and palpitations Chest Pain: DD: Less likely ACS. DD: GERD, Pleuritic, costochondritis --EKG suggestive of Brugada pattern --Troponin negative --ECHO: Left ventricular systolic function is mildly reduced. Appears to be mild hypokinesis of the mid to distal portions of the anterior lateral shen. Right ventricle is mildly dilated. Right atrium is mildly dilated. Inferior vena cava is mildly dilated. EF 45 to 50%. --Stress Test: Normal exercise echocardiogram without evidence of inducible ischemia. Normal augmentation of all segments with exercise. --Appreciate cardiology input --Trial of prednisone and PPI -- Cardiology suggested implantable loop recorder to rule out arrhythmias but patient refused per cardiology --Will recommend to obtain cardiac CTA as outpatient Needs follow-up with cardiology on discharge GERD -Barium Swallow:Gastroesophageal reflux. Otherwise unremarkable. Started on PPI Will recommend EGD as outpatient (2) Near syncope: Plan: Likely secondary to significant tachycardia may be due to ventricular arrhythmias Dizziness resolved Monitor for any arrhythmias Patient refused implantable loop recorder per Cards (3) Chest pain: Plan: Management as above (4) Asthma: Plan: Well-controlled with occasional use of inhaler H/O Anxiety Takes Remeron as needed but not on the list DVT Px: SQ Heparin CODE STATUS Full Code Admission and Anticipated Discharge Date Admission Date: June 20, 2024 Subjective Patient is seen and examined at bedside Patient complained of recurrence of chest pain this morning Discussed with cardiology today Denies any chest pain, dyspnea, nausea, vomiting Review of Systems Review of Systems: All systems reviewed & are unremarkable except as noted in Subjective Physical Exam Physical Exam: Physical Exam: Vitals signs as noted above General Appearance:Moderately built and nourished, no apparent distress Head: normocephalic, Atraumatic Eyes: normal inspection, EOMI Neck: supple, Trachea midline Respiratory/Chest: Normal breath sounds, CTA, No accessory muscle use Cardiovascular: S1, S2, No murmur Abdomen/GI:Soft, Non tender, Bowel sounds present Extremities/Musculoskeletal:normal inspection, no edema Neurologic/Psych:AAOX3, grossly no focal neurological deficits Skin: normal color, warm Results & Data Results & Data Vital Signs (Past 12 Hours) Vital Signs Temp Pulse Pulse Pulse Resp BP Pulse Ox 06/23/24 15:06 36.6 C 77 18 121/74 100 06/23/24 11:59 78 06/23/24 11:56 36.7 C 58 L 18 94/60 L 99 06/23/24 10:43 36.4 C L 68 17 104/67 100 06/23/24 10:05 36.5 C 66 17 115/71 100 06/23/24 09:36 36.5 C 73 113/75 98 06/23/24 09:26 36.5 C 86 17 115/68 97 06/23/24 09:14 36.5 C 84 110/73 97 06/23/24 08:00 36.7 C 75 18 109/66 99 06/23/24 03:34 36.8 C 71 71 18 125/78 98 O2 Del Method O2 Flow Rate 06/23/24 15:06 Nasal Cannula 2.0 06/23/24 11:59 06/23/24 11:56 Nasal Cannula 2.0 06/23/24 10:43 Nasal Cannula 2 06/23/24 10:05 Room Air 06/23/24 09:36 Nasal Cannula 2 06/23/24 09:26 Room Air 06/23/24 09:14 Room Air 06/23/24 08:00 Room Air 06/23/24 03:34 Room Air Laboratory Results BMP 06/23/24 06:53 Sodium 139 Potassium 3.9 Chloride 103 Carbon Dioxide 30 BUN 10 Creatinine 1.06 Glucose 93 Calcium 9.1
--- NOTE | 2024-06-23 17:19 | Electrocardiogram Report ---
Test Reason : Blood Pressure : */* mmHG Vent. Rate : 70 BPM Atrial Rate : 70 BPM P-R Int : 230 ms QRS Dur : 126 ms QT Int : 404 ms P-R-T Axes : 43 73 47 degrees QTcB Int : 436 ms Sinus rhythm with 1st degree A-V block Non-specific intra-ventricular conduction block Abnormal ECG When compared with ECG of 21-Jun-2024 05:18, CT interval has increased Confirmed by Wili Gupta ([id number]) on 06/23/2024 5:19:02 PM Referred By: Zeeshan SCI Confirmed By: Wili Gupta
[2024-06-24 07:49] VITALS: RESP 18
[2024-06-24 08:59] LABS: BUN Creatinine Ratio 13.4 (10-20); Calcium 8.9 mg/dl (8.6-10.3); Potassium 3.9 mmol/L (3.5-5.1)
[2024-06-24] MEDS: predniSONE 20 MG TAB PO SCH (09:09)
[2024-06-24] MEDS ORDERED: POLYETHYLENE (MIRALAX) 17 GM PACK PO PRN (10:04)
[2024-06-24 11:18] VITALS: BP 141/73; TEMP 97.5; O2SAT 99
[2024-06-24] MEDS: DOCUSATE SODIUM 100 MG CAP PO SCH (11:52)
--- NOTE | 2024-06-24 12:47 | Hospitalist Progress Note ---
Date of Service June 24, 2024 Assessment & Plan (1) Brugada syndrome: Plan: Presented with chest pain with typical radiation for angina, presyncope and palpitations Chest Pain: DD: Less likely ACS. DD: GERD, Pleuritic, costochondritis --EKG suggestive of Brugada pattern --Troponin negative --ECHO: Left ventricular systolic function is mildly reduced. Appears to be mild hypokinesis of the mid to distal portions of the anterior lateral shen. Right ventricle is mildly dilated. Right atrium is mildly dilated. Inferior vena cava is mildly dilated. EF 45 to 50%. --Stress Test: Normal exercise echocardiogram without evidence of inducible ischemia. Normal augmentation of all segments with exercise. --Appreciate cardiology input --Trial of prednisone and PPI -- Cardiology suggested implantable loop recorder to rule out arrhythmias but patient refused per cardiology --Will recommend to obtain cardiac CTA as outpatient Needs follow-up with cardiology on discharge No further cardiac workup planned while hospitalized. Plan to be [facility] back to [facility] today GERD -Barium Swallow:Gastroesophageal reflux. Otherwise unremarkable. Started on PPI Will recommend EGD as outpatient (2) Near syncope: Plan: Likely secondary to significant tachycardia may be due to ventricular arrhythmias Dizziness resolved Monitor for any arrhythmias Patient refused implantable loop recorder per Cards (3) Chest pain: Plan: Management as above (4) Asthma: Plan: Well-controlled with occasional use of inhaler H/O Anxiety Takes Remeron as needed but not on the list DVT Px: SQ Heparin CODE STATUS Full Code Disposition [facility] Admission and Anticipated Discharge Date Admission Date: June 20, 2024 Subjective Patient is seen and examined at bedside Reports intermittent chest discomfort Also reports constipation but passing gas Denies any nausea, vomiting, improved pain, dyspnea Plan to be discharged back to correctional facility today Review of Systems Review of Systems: All systems reviewed & are unremarkable except as noted in Subjective Physical Exam Physical Exam: Physical Exam: Vitals signs as noted above General Appearance:Moderately built and nourished, no apparent distress Head: normocephalic, Atraumatic Eyes: normal inspection, EOMI Neck: supple, Trachea midline Respiratory/Chest: Normal breath sounds, CTA, No accessory muscle use Cardiovascular: S1, S2, No murmur Abdomen/GI:Soft, Non tender, Bowel sounds present Extremities/Musculoskeletal:normal inspection, no edema Neurologic/Psych:AAOX3, grossly no focal neurological deficits Skin: normal color, warm Results & Data Results & Data Vital Signs (Past 12 Hours) Vital Signs Temp Pulse Pulse Resp BP Pulse Ox O2 Del Method 06/24/24 11:17 36.4 C L 68 18 141/73 H 99 Room Air 06/24/24 10:00 61 06/24/24 07:49 36.6 C 71 18 124/73 100 Room Air 06/24/24 04:38 36.6 C 69 20 119/77 97 Room Air Laboratory Results [facility] 06/24/24 08:17 Sodium 138 Potassium 3.9 Chloride 103 Carbon Dioxide 28 BUN 15 Creatinine 1.12 Glucose 149 H Calcium 8.9
--- NOTE | 2024-06-24 13:00 | Discharge Summary ---
Date of Service June 24, 2024 Admission HPI Per Admitting Provider Is a 23-year-old male with significant past medical history of controlled asthma apparently was brought in from [facility] with chest pain and near syncope that happened to be around 1 PM .he was sitting down and suddenly felt some palpitation associated with chest pain that radiated to the left upper extremity and also to the neck, he felt sweaty and also visual floaters and almost about to pass out. He did not have this symptoms anytime before and he does not have any cardiac conditions. He denies any nausea or vomiting associated with it and does not have any numbness or tingling involving any of the extremities. His asthma seems to be well-controlled. He has been feeling fine since admission and the EKG showed typical Brugada syndrome and the case was discussed with Dr. Gupta by the emergency medicine doctor and was advised to admit the patient and get an echocardiogram. He will be seen by the parts driver in the morning for further evaluation and investigation. Admission Exam Per Admitting Provider Physical Exam: Lying in bed without any acute distress Constitutional: well developed and well nourished; not ill appearing Eyes: PERRL, conjunctivae normal, anicteric sclerae ENMT: external ear and nose normal, oropharynx normal Neck: trachea midline, no thyromegaly Respiratory: no respiratory distress Auscultation: + crackles; + lungs not clear to auscultation Cardiovascular: Rate/Rhythm: regular rate, regular rhythm and + bradycardic Heart Sounds: normal S1, normal S2 and + murmur Extremities: no edema Gastrointestinal (Abdomen): Inspection/Auscultation: normal bowel sounds; abdomen not distended Percussion/Palpation: abdomen soft; abdomen nontender Musculoskeletal: No acute arthritis involving any of the joint Neurologic: normal touch/pain/proprioception and moves all extremities; no focal motor deficits Psychiatric: A+Ox3, euthymic affect Lymphatic: no cervical or axillary lymphadenopathy Principal Diagnosis Chest pain Brugada pattern on electrocardiogram Abnormal ECHO GERD Near syncope Cardiomyopathy Constipation Discharge Data Allergies Allergy/AdvReac Type Severity Reaction Status Date / Time No Known Allergies Allergy Unverified 06/20/24 15:45 Consultations 06/20/24 17:24 Consult Cardiac Electrophysiology Routine ED Decision to Admit Stat Procedures Performed Laboratory Results WBC 5.54 K/ul (4.8-10.8) 06/21/24 08:02 RBC 5.14 M/uL (4.70-6.10) 06/21/24 08:02 Hgb 15.8 g/dl (14.0-18.0) 06/21/24 08:02 Hct 45.5 % (42.0-52.0) 06/21/24 08:02 MCV 88.5 fL (80.0-100.0) 06/21/24 08:02 MCH 30.7 pg (25.0-34.0) 06/21/24 08:02 MCHC 34.7 g/dL (32.0-36.0) 06/21/24 08:02 RDW Std Deviation 41.5 fL (36.4-46.3) 06/21/24 08:02 RDW Coeff of Anup 12.7 % (11.5-14.5) 06/21/24 08:02 Plt Count 182 K/uL (130-400) 06/21/24 08:02 MPV 9.5 fL (9.4-12.4) 06/21/24 08:02 Immature Gran % (Auto) 0.2 % 06/21/24 08:02 Neut % (Auto) 45.8 % 06/21/24 08:02 Lymph % (Auto) 40.4 % 06/21/24 08:02 Otero % (Auto) 10.6 % 06/21/24 08:02 Eos % (Auto) 2.3 % 06/21/24 08:02 Baso % (Auto) 0.7 % 06/21/24 08:02 Neut # (Auto) 2.53 K/uL (1.40-6.50) 06/21/24 08:02 Lymph # (Auto) 2.24 K/uL (1.20-3.40) 06/21/24 08:02 Otero # (Auto) 0.59 K/uL (0.11-0.59) 06/21/24 08:02 Eos # (Auto) 0.13 K/uL (0.00-0.50) 06/21/24 08:02 Baso # (Auto) 0.04 K/uL (0.00-0.20) 06/21/24 08:02 Immature Gran # (Auto) 0.01 K/uL (0.01-0.20) 06/21/24 08:02 PT 11.7 Seconds (9.0-12.0) 06/20/24 15:20 INR 1.1 (0.9-1.1) 06/20/24 15:20 Sodium 138 mmol/L (136-145) 06/24/24 08:17 Potassium 3.9 mmol/L (3.5-5.1) 06/24/24 08:17 Chloride 103 mmol/L (98-107) 06/24/24 08:17 Carbon Dioxide 28 mmol/L (21-32) 06/24/24 08:17 Anion Gap 7 (3-11) 06/24/24 08:17 BUN 15 mg/dl (6-23) 06/24/24 08:17 Creatinine 1.12 mg/dl (0.6-1.4) 06/24/24 08:17 Est Cr Clr Drug Dosing 133.0 ml/min 06/24/24 08:17 eGFR 93.50 06/24/24 08:17 BUN/Creatinine Ratio 13.4 (10-20) 06/24/24 08:17 Glucose 149 mg/dl (70-99(Fasting)) H 06/24/24 08:17 Calcium 8.9 mg/dl (8.6-10.3) 06/24/24 08:17 Phosphorus 3.8 mg/dl (2.5-4.9) 06/21/24 08:02 Magnesium 2.0 mg/dl (1.7-2.4) 06/21/24 08:02 Total Bilirubin 0.7 mg/dl (0.2-1.0) 06/20/24 15:20 AST 25 U/L (13-39) 06/20/24 15:20 ALT 21 U/L (7-52) 06/20/24 15:20 Alkaline Phosphatase 62 U/L (34-104) 06/20/24 15:20 Troponin I High Sens < 2.3 pg/ml (0-20) 06/23/24 09:28 Total Protein 7.9 gm/dl (6.0-8.3) 06/20/24 15:20 Albumin 4.7 gm/dl (3.4-5.0) 06/20/24 15:20 Globulin 3.2 gm/dl (2.5-4.0) 06/20/24 15:20 Albumin/Globulin Ratio 1.5 (0.9-2) 06/20/24 15:20 Lipase 22 U/L (11-82) 06/20/24 15:20 Urine Color Yellow 06/20/24 16:12 Urine Appearance Clear (Clear) 06/20/24 16:12 Urine pH 7.0 (4.5-7.5) 06/20/24 16:12 Ur Specific Shushan 1.015 (1.000-1.030) 06/20/24 16:12 Urine Protein Negative (Negative) 06/20/24 16:12 Urine Glucose (UA) Negative (Negative) 06/20/24 16:12 Urine Ketones Negative (Negative) 06/20/24 16:12 Urine Blood Negative (Negative) 06/20/24 16:12 Urine Nitrite Negative (Negative) 06/20/24 16:12 Urine Bilirubin Negative (Negative) 06/20/24 16:12 Urine Urobilinogen Negative (Negative) 06/20/24 16:12 Ur Leukocyte Esterase Negative (Negative) 06/20/24 16:12 Nasal Screen MRSA (PCR) Negative (Negative) 06/21/24 Unknown Urine Opiates Screen Neg (Neg) 06/20/24 16:12 Ur Methadone, Qual Neg (Neg) 06/20/24 16:12 Urine Fentanyl Screen Neg (Neg) 06/20/24 16:12 Urine Barbiturates Neg (Neg) 06/20/24 16:12 Ur Phencyclidine (PCP) Neg (Neg) 06/20/24 16:12 U Amphetamin/Meth Scrn Neg (Neg) 06/20/24 16:12 MDMA (Ecstasy) Screen Neg (Neg) 06/20/24 16:12 U Benzodiazepines Scrn Neg (Neg) 06/20/24 16:12 Ur Cocaine Metabolite Neg (Neg) 06/20/24 16:12 U Marijuana (THC) Screen Neg (Neg) 06/20/24 16:12 Impressions Chest X-Ray 06/20/24 15:15 XR chest 1V portable CLINICAL HISTORY: Chest pain, nonspecific COMPARISON STUDY: None FINDINGS: Heart size and pulmonary vasculature are normal. No effusion, consolidation, or pneumothorax. IMPRESSION: No acute findings. ACT 112: Negative or not required by law. Electronically signed by: Jaime Perea M.D. 06/20/2024 3:55 PM Chest CTA 06/21/24 12:52 CT angio chest PE protocol CT DOSE: 797.56 mGy.cm HISTORY: PE. TECHNIQUE: Multiple CTA images of the chest were obtained after the intravenous administration of 120 ml Optiray. Coronal and sagittal MIPS were obtained from the axial data set and were submitted for review. All measurements were obtained according to NASCET criteria. A dose lowering technique was utilized adhering to the principles of ALARA. COMPARISON STUDY: None FINDINGS: There is no pulmonary consolidation or pleural effusion. No pneumothorax. There is a partially visualized right thyroid lobe nodule. No enlarged adenopathy. No pericardial effusion. No thoracic aortic dissection or aneurysm. No pulmonary embolism. No acute osseous findings. IMPRESSION: No pulmonary embolism or pneumonia seen. ACT 112: Negative or not required by law. The above report was generated using voice recognition software. It may contain grammatical, syntax or spelling errors. Electronically signed by: Jaime Perea M.D. 06/21/2024 2:33 PM Barium Swallow X-Ray 06/23/24 11:07 FL barium swallow CLINICAL HISTORY: Rule out Esophageal Spasm. TECHNIQUE: Barium contrast and effervescent crystals were administered to the patient under fluoroscopic examination. Multiple images were obtained and submitted for review. FLUOROSCOPY TIME: 0.6 minutes FLUOROSCOPY IMAGES: 24 Ka,r: 27.3 mGy COMPARISON: None FINDINGS: There is no esophageal stricture or significant hiatal hernia. No significant esophageal spasm seen. There is gastroesophageal reflux. Barium tablet passes through the esophagus and into the stomach without delay. IMPRESSION: Gastroesophageal reflux. Otherwise unremarkable. ACT 112: Negative or not required by law. The above report was generated using voice recognition software. It may contain grammatical, syntax or spelling errors. Electronically signed by: Jaime Perea M.D. 06/23/2024 1:57 PM Ordered Studies 06/21/24 12:52 CT angio chest PE protocol Routine 06/23/24 11:07 FL barium swallow Routine Hospital Course (1) Brugada syndrome: Presented with chest pain with typical radiation for angina, presyncope and palpitations Chest Pain: DD: Less likely ACS. DD: GERD, Pleuritic, costochondritis --EKG suggestive of Brugada pattern --Troponin negative --ECHO: Left ventricular systolic function is mildly reduced. Appears to be mild hypokinesis of the mid to distal portions of the anterior lateral shen. Right ventricle is mildly dilated. Right atrium is mildly dilated. Inferior vena cava is mildly dilated. EF 45 to 50%. --Stress Test: Normal exercise echocardiogram without evidence of inducible ischemia. Normal augmentation of all segments with exercise. --Appreciate cardiology input --Trial of prednisone and PPI -- Cardiology suggested implantable loop recorder to rule out arrhythmias but patient refused per cardiology --Will recommend to obtain cardiac CTA as outpatient Needs follow-up with cardiology on discharge No further cardiac workup planned while hospitalized. Plan to be discharged back to correctional facility today GERD -Barium Swallow:Gastroesophageal reflux. Otherwise unremarkable. Started on PPI Will recommend EGD as outpatient (2) Near syncope: Likely secondary to significant tachycardia may be due to ventricular arrhythmias Dizziness resolved Monitor for any arrhythmias Patient refused implantable loop recorder per Cards (3) Chest pain: Management as above (4) Asthma: Well-controlled with occasional use of inhaler H/O Anxiety Takes Remeron as needed but not on the list DVT Px: SQ Heparin CODE STATUS Full Code Disposition [facility] facility Total Time Total Time Spent Total Time Spent (In Minutes): 54 minutes Discharge Plan Discharge Items Patient Disposition: [facility] Reason For Visit: CHEST PAIN, PRESYNCOPE Discharge Diagnosis: Chest pain Brugada pattern on electrocardiogram Abnormal ECHO GERD Near syncope Cardiomyopathy Constipation Activity: Per Instructions section Exercise/Sports: Gradually increase as tolerated Non-emergency contact: Primary Care Provider and Illuminating Engineer Call non-emergency contact if: you have any medication questions, your symptoms worsen, your pain is concerning for you and you have a fever Follow-up/Referrals: Zeeshan DONOHUE [Primary Care Provider] - Diet: Heart Healthy Addtl Attending Provider Instructions: Follow-up with your physician at correctional facility as advised Follow-up with your parts driver in 2 weeks as outpatient for cardiac MRI and further investigations as needed Seek immediate medical attention if your symptoms reoccur or worsen Please review medication list provided on discharge for any medication changes as instructed. Please call if you have any questions or problems. You can reach a [facility] hospitalist on duty at [facility] 24 hours a day by calling [phone] Pending Studies at Discharge: No Stand-Alone Forms: My [facility] Skilled Items Patient informed of condition?: Yes Discharge Level of Care: Other Communicable Disease: No Discharge Prognosis: Stable Lines: None Urinary Catheter: No Medications and DC Order Prescriptions: New pantoprazole 40 mg Tablet,Delayed Release (Dr/Ec) 40 mg PO DAILY Qty: 0 0RF docusate sodium 100 mg Capsule 100 mg PO BID PRN (Reason: Constipation) Qty: 0 0RF polyethylene glycol 3350 [Miralax] 17 gram Powder In Packet 17 g PO DAILY PRNQty: 0 0RF Continued albuterol sulfate 90 mcg/actuation Hfa Aerosol Inhaler 2 puff INHALATION QID PRN (Reason: Shortness Of Breath Or Wheezing) Discharge Orders: Discharge Order (Routine); Ordered 06/24/24 Ordered By: Darwin Barnett Admission Data Admit Date/Time: 06/20/24 17:46 Attending Provider: Darwin Barnett Admit Provider: Radha Snow Primary Care Provider: Zeeshan DONOHUE Other Providers: Radha Snow; Wili Gupta
[2024-06-24 13:17] VITALS: PULSE 71
== END 2024-06-24 13:38 | DRG 310 ==
LOC: ED 15:02 → SUATTDRO 17:46 → 2S 17:46 → INTOOBSV 17:46 → 2S 20:49